=== PATIENT | female | born 1930 | race Caucasian/White ===

== ENCOUNTER → 2016-05-06 | Outpatient (CLI) | payer OTHER ==
[~2016-05-06] MED LIST: ACTONEL 35 MG35 M1 PO; BENICAR20 MG PO; CALCIUM PO; CARDIZEM CD120 MG PO; ESCITALOPRAM OX10 MG PO; EVISTA PO; FERRO-TIME325 MG PO; FISH OIL 1,0001 EAC6 PO; FLECAINIDE ACET50 M1 PO; FLONASE 0.05%50 MCG NASAL; HYDRALAZINE 2525 M1 PO; MULTIVITAMINS1 EAC7 PO; NASONEX17 GM NS; NEXIUM20 M1 PO; PRADAXA75 MG PO; PREDNISONE 5 MG5 M1; SYMBICORT160 MCG/4. INH; TAMIFLU30 MG PO; TYLENOL PM PO; VENTOLIN HFA 1818 GM INH; XANAX 0.5 MG0.5 M1 PO
== END ==
LOC: RAD 14:17
DX: J45.909 Unspecified asthma, uncomplicated (principal)

== ENCOUNTER 2016-11-27 23:25 | Emergency (ER) | payer OTHER ==
[~2016-11-27] VITALS: Ht 160 cm; Wt 65.8 kg
--- NOTE | ~2016-11-27 | EKG ---
[address] [place] [address] ELECTROCARDIOGRAM REPORT Name: SHREYAS LEON Room #: [facility] [id number] Admission: 11/27/16 Attend Phys: Discharge: 11/28/16 Date of : [birth year] Report #: [id number] THIS REPORT FOR: //name// [facility] ED Test Date: 2016-11-27 Test Time: 23:40:36 Pat Name: SHREYAS LEON Department: Room: Gender: F Business Planner: SEAN : 1930 Requested By: Shari Henry Order Number: [id number] MD: Arnold Pack Measurements Intervals [place] Rate: 98 P: 67 [place]: 237 QRS: 62 QRSD: 100 T: -15 QT: 326 QTc: 417 Interpretive Statements Sinus rhythm Atrial premature complex Prolonged [place] interval Borderline repolarization abnormality Compared to ECG 12/09/2012 21:29:54 Atrial premature complex(es) now present Electronically Signed On 11-29-2016 8:47:29 CDT by Arnold Pack [email or web address] <ELECTRONICALLY SIGNED> By: Arnold Pack MD, [facility] 11/29/16 [id number] Arnold Pack MD, [facility] /EPI
[2016-11-28 00:18] LABS: ABSOLUTE NEUTROPHILS 4.4 thou/uL (1.4-8.2); EOSINOPHILS 3.6 % (0.0-3.0); HEMATOCRIT 34.3 % (37.0-47.0); HEMOGLOBIN 11.8 gm/dL (12.0-15.0); LYMPHOCYTES 26.1 % (24.0-44.0); MCH 30.3 pg (26.0-34.0); MCHC 34.4 g/dL (28.0-37.0); MCV 88.1 fL (80.0-100.0); MONOCYTES 11.1 % (1.0-8.0); PLATELET COUNT 349 thou/uL (150-400); POLYS 58.2 % (36.0-66.0); WBC 7.5 thou/uL (4.0-11.0)
[2016-11-28 00:24] LABS: ANION GAP 12 mmol/L (7-16); BUN 17 mg/dL (7-18); CALCIUM 9.4 mg/dL (8.5-10.1); CHLORIDE 96 mmol/L (98-107); CO2 23 mmol/L (21-32); CREATININE 0.8 mg/dL (0.6-1.0); GLUCOSE 132 mg/dL (74-106); MANUAL DIFF NO; POTASSIUM 4.1 mmol/L (3.5-5.1); SODIUM 131 mmol/L (136-145)
[2016-11-28 00:37] LABS: NT-PRO BRAIN NAT PEPTIDE 241 pg/mL (<300); TROPONIN-I < 0.04 ng/mL (<0.04-0.07)
== END 2016-11-28 02:10 | disposition home or self-care (01) ==
LOC: ER 23:25
PROVIDERS: Emergency Medicine
DX: I48.0 Paroxysmal atrial fibrillation (principal); J45.909 Unspecified asthma, uncomplicated; F10.99 Alcohol use, unspecified with unspecified alcohol-induced disorder; Z85.3 Personal history of malignant neoplasm of breast; Z87.891 Personal history of nicotine dependence